=== PATIENT | male | born 1990 | race Caucasian/White ===

== ENCOUNTER 2019-07-31 14:39 | Outpatient (CLI) | payer BC, OTHER ==
[2019-07-31 16:10] LABS: #Basophils 0.1 thou/uL (0.0-0.2); #Eosinphils 0.2 thou/uL (0.0-0.7); #Lymphocytes 2.4 thou/uL (1.20-3.40); #Monocytes 0.6 thou/uL (0.11-0.59); #Neutrophils 4.7 thou/uL (1.40-6.50); %Eosinophils 2.7 % (0.0-10.0); %Lymphocytes 29.9 % (21.0-51.0); %Monocytes 7.9 % (0.0-10.0); %Neutrophils 58.6 % (42.0-75.0); Hemoglobin 14.4 g/dL (14.0-18.0); Mean Corpuscular Hemoglobin 31.5 pg (27.0-31.0); Mean Platelet Volume 7.8 fL (7.4-10.4); Platelet Count 203 thou/uL (130-400); RBC Distribution Width 10.7 % (11.5-14.5); Red Blood Cell (RBC) Count 4.58 mill/uL (4.70-6.10)
== END 2019-07-31 14:40 | disposition home or self-care (01) ==
LOC: LABBT 14:39
PROVIDERS: ATTEND Surgery
DX: Z01.812 Encounter for preprocedural laboratory examination (principal); K42.9 Umbilical hernia without obstruction or gangrene
CPT/HCPCS: 85025

== ENCOUNTER 2019-08-02 07:18 | Day surgery (SDC) | payer BC, OTHER ==
[2019-07-31 14:54] VITALS: BMI 30.5
[2019-08-02] MEDS ORDERED: Fentanyl 100 MCG/2 ML VIAL ONE (09:25)
[2019-08-02] MEDS ORDERED: Bupivacaine/Epinephrine 0.25% 30 ML VIAL ONE (09:37)
[2019-08-02] MEDS ORDERED: PROPOFOL 200 MG/20 ML VIAL ONE (12:23)
[2019-08-02] MEDS ORDERED: Dexamethasone 20 MG/5 ML VIAL ONE (12:23)
[2019-08-02] MEDS ORDERED: Ondansetron PF 4 MG/2 ML Vial ONE (12:23)
[2019-08-02] MEDS ORDERED: Ketorolac Tromethamine 30 MG/ML VIAL ONE (12:23)
--- NOTE | 2019-08-03 08:00 | OP ---
DATE OF PROCEDURE: 08/02/2019 PREOPERATIVE DIAGNOSIS: Umbilical hernia. PROCEDURE PERFORMED: Umbilical hernia repair. INDICATIONS: A 28-year-old male who had a painful nodule in his umbilicus, found to have a hernia. FINDINGS: Very small hernia with a 3 mm defect, so no mesh was used. DESCRIPTION OF PROCEDURE: After informed consent was obtained, the patient was taken to the operating room, given general endotracheal anesthesia, placed in supine position. Abdomen was prepped and draped in the usual fashion. Local anesthesia infiltrated subcutaneously and deep. A subumbilical incision was performed. Subcu divided sharply. The umbilical skin was dissected from hernia sac down to the fascia. Hernia sac excised. The content was just some preperitoneal fat. It was a very small defect of 3 mm. This was closed with [id number] of 0 Ethibond. Then, the hemostasis was achieved electrocautery. The umbilical skin was sutured to the fascia with interrupted 3-0 Vicryl suture to restore umbilical contour. Subcu reapproximated with interrupted 3-0 Vicryl and the skin closed with interrupted 4-0 Rapide. Steri-Strips applied. Sterile bandage applied. The patient tolerated the procedure well, transferred to Recovery in good condition. Sponge and needle count verified correct x2. Job ID: [id number]
== END 2019-08-02 12:05 | disposition home or self-care (01) ==
LOC: SDC 07:18
PROVIDERS: ATTEND Surgery
PROC: 0WUF0JZ Supplement Abdominal Wall with Synthetic Substitute, Open Approach (ICD-10-PCS; principal; 2019-08-02)
DX: K42.9 Umbilical hernia without obstruction or gangrene (principal); Z87.891 Personal history of nicotine dependence
CPT/HCPCS: J0690; J1100; J1885; J2405; J2704; J3010